=== PATIENT | female | born 1950 | race Caucasian/White ===

== ENCOUNTER 2017-04-03 16:09 | Emergency (ER) | payer MEDICARE ==
--- NOTE | ~2017-04-03 | CR72 ---
[facility] A Service of [facility] RADIOLOGY TEXT RESULTS PATIENT: JOSE MARCELO LOCATION: SED : 48 UNIT #: [id number] AGE: [address]: Chris Rhoades MD SEX: F ORDER DR: [id number] [address] [address] [id number] E MR#: [id number] Acc #: [id number] NAME: JOSE MARCELO : 1950 SEX: F STUDY DATE/TIME: 04/03/2017 16:54 UNIT: SED ROOM: STUDY DESCRIPTION: CR Chest Single View Portable Attending Physician: Chris Rhoades M.D. Ordering Physician: Chris Rhoades M.D. Primary Care Physician: Vi Dobson MEDICAL IMAGING REPORT This report is preliminary unless electronic signature is present. EXAM Portable chest HISTORY Chest pain since yesterday. FINDINGS The cardiac size and pulmonary vascularity are within normal limits allowing for shallow inspiration. No infiltrates or effusions. Surgical clips in the upper abdomen. IMPRESSION No acute findings. Dictated by... Michael Holt M.D. THIS IS AN ELECTRONICALLY VERIFIED REPORT Michael Holt M.D. at 04/04/2017 12:02 PM DFL/alexander TD: 04/04/2017 05:48 JOB #: [id number] MEDICAL IMAGING REPORT Page 1 of 1
--- NOTE | ~2017-04-03 | EKG ---
PATIENT: JOSE MARCELO UNIT #: [id number] Ventricular Rate: 95 BPM Atrial Rate: 95 BPM P-R Interval: 164 ms QRS Duration: 106 ms Q-T Interval: 400 ms QTC Calculation(Bezet): 502 ms P Coral: 38 degrees Calculated R Coral: -24 degrees Calculated T Coral: 72 degrees Diagnosis Line: Normal sinus rhythm Diagnosis Line: Low voltage QRS Diagnosis Line: Nonspecific T wave abnormality Diagnosis Line: Prolonged QT Diagnosis Line: Abnormal ECG Diagnosis Line: When compared with ECG of 11-MAY-2015 22:11, Diagnosis Line: Nonspecific T wave abnormality, worse in Diagnosis Line: Anterolateral leads Diagnosis Line: QT has lengthened Diagnosis Line: Confirmed by JORGE L MORALES MD ([id number]) on Diagnosis Line: 04/08/2017 8:21:45 AM INTERPRETING MD: ANDREW VARGHESE
[~2017-04-03 16:09] MED LIST: ASPIRIN PO; BUTALBITAL; COSOPT EYE DROPS5 ML OP; DIAZEPAM PO; FISH OIL 1,001000 M1 PO; FLEXERIL PO; FUROSEMIDE40 MG PO; HCTZ PO; KCL PO; LIPITOR PO; LISINOPRIL PO; LUMIGAN; METFORMIN HCL500 M1 PO; MOBIC PO; NEURONTIN PO; NORCO1 TAB 10/3 PO; SYNTHROID PO; TOPROL XL PO; VITAMIN D2000 UNIT PO; ZOLOFT PO; [UNRECOGNIZED DRUG - OTHER]
[2017-04-03] MEDS ORDERED: METFORMIN PO (16:42)
[2017-04-03] MEDS ORDERED: PEPCID PO (16:42)
[2017-04-03] MEDS ORDERED: VALIUM PO (16:43)
[2017-04-03] MEDS ORDERED: BUSPIRONE PO (16:43)
[2017-04-03] MEDS ORDERED: IMDUR PO (16:43)
[2017-04-03] MEDS ORDERED: LISINOPRIL PO (16:44)
[2017-04-03] MEDS ORDERED: DONEPEZIL PO (16:44)
[2017-04-03] MEDS ORDERED: LEVOTHYROXINE PO (16:44)
[2017-04-03] MEDS ORDERED: SERTRALINE PO (16:45)
[2017-04-03] MEDS ORDERED: LIPITOR PO (16:45)
[2017-04-03] MEDS ORDERED: NITROSTAT SL (16:46)
[2017-04-03] MEDS ORDERED: ASPIRIN PO (16:46)
[2017-04-03 17:10] LABS: BASOPHIL% 0.5 % (0-2.5); DIFF IND NO; EOSINOPHIL% 0.3 % (0.0-7.0); LYMPHOCYTE# 1.7 X10e3 (1.0-3.5); LYMPHOCYTE% 17.6 % (17.0-45.0); MEAN CELL VOLUME 86.6 FL (83-96); MEAN CORPUSCULAR HEMOGLOBIN 28.8 PG (28-34); MEAN CORPUSCULAR HGB CONC 33.2 g/dL (30-36); MEAN PLATELET VOLUME 9.6 FL (6.5-11.5); MONOCYTE# 0.7 X10e3 (0-1.0); MONOCYTE% 7.5 % (3.0-12.0); NEUTROPHIL# 7.3 X10e3 (1.5-7.1); NEUTROPHIL% 74.1 % (40-75); PLATELET COUNT 220 X10e3 (140-420); RED BLOOD COUNT 4.51 X10e (3.90-5.30); RED CELL DISTRIBUTION WIDTH 14.3 % (11.0-15.5); WHITE BLOOD COUNT 9.9 X10e3 (4.0-10.5)
[2017-04-03 17:13] LABS: POC - CKMB 10.2 ng/mL (0.0-7.9); POC - MYOGLOBIN 56.3 ng/mL (0.0-169.0); POC - TROPONIN 0.58 ng/mL (<=0.05)
[2017-04-03 17:23] LABS: INR 1.1; PROTHROMBIN TIME (PATIENT) 12.9 SECONDS (9.5-12.4)
[2017-04-03 17:30] LABS: PARTIAL THROMBOPLASTIN TIME 27.6 SECONDS (25.6-38.1)
[2017-04-03 17:34] LABS: ALBUMIN SERUM 4.2 g/dL (3.5-5.0); BILIRUBIN, DIRECT 0.1 mg/dL (0.0-0.2); BILIRUBIN,INDIRECT 0.6 mg/dL (0.0-0.9); BILIRUBIN,TOTAL 0.7 mg/dL (0.2-2.0); BUN/CREATININE RATIO 17.14; CALCIUM SERUM 9.4 mg/dL (8.4-10.2); CREATININE SERUM 0.7 mg/dL (0.6-1.4); GLOM FILT RATE Estimated 89.7 mL/min (>60); POTASSIUM 3.7 mmol/L (3.5-5.1); PROTEIN TOTAL SERUM 7.2 g/dL (6.0-8.3)
[2017-04-03 18:47] LABS: POC - CKMB 11.2 ng/mL (0.0-7.9); POC - MYOGLOBIN 72.3 ng/mL (0.0-169.0); POC - TROPONIN 0.69 ng/mL (<=0.05)
== END 2017-04-03 20:31 ==
LOC: SED 16:09
PROVIDERS: Emergency Medicine
DX: I50.9 Heart failure, unspecified (principal); E11.65 Type 2 diabetes mellitus with hyperglycemia; D64.9 Anemia, unspecified; Z90.49 Acquired absence of other specified parts of digestive tract; Z79.84 Long term (current) use of oral hypoglycemic drugs; Z79.899 Other long term (current) drug therapy
CPT/HCPCS: 36415; 71010; 80048; 80076; 82553; 83874; 83880; 84484; 85025; 85610; 85730; 93005; 99285; J1650